=== PATIENT | female | born 1990 | race Two or more races ===

== ENCOUNTER 2016-11-07 19:26 | Emergency (ER) | payer OTHER ==
[~2016-11-07] VITALS: Ht 162.6 cm; Wt 85.6 kg
[2016-11-07 19:38] VITALS: BP 119/55; PULSE 70; RESP 18; TEMP 98.1; O2SAT 99
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
[2016-11-07] MEDS ORDERED: PREN29TA PO (20:07)
[2016-11-07] MEDS ORDERED: ACETAMINOPHEN 325 MG TAB PO ONE (20:15)
== END 2016-11-07 20:25 | disposition home or self-care (01) ==
LOC: PHED 19:26
DX: O99.89 Other specified diseases and conditions complicating pregnancy, childbirth and the puerperium (principal); S16.1XXA Strain of muscle, fascia and tendon at neck level, initial encounter; R10.11 Right upper quadrant pain; V49.88XA Car occupant (driver) (passenger) injured in other specified transport accidents, initial encounter; Z3A.00 Weeks of gestation of pregnancy not specified
CPT/HCPCS: 99282